=== PATIENT | female | born 2000 | race Caucasian/White ===

== ENCOUNTER 2022-03-30 18:06 | Emergency (ER) | payer OTHER ==
[~2022-03-30] VITALS: Ht 157.5 cm; Wt 59.9 kg
[~2022-03-30 18:06] MED LIST: MUCINEX DM1 TAB.SR . PO; OSEL75CA PO; PEPCID20 MG PO
== END 2022-03-30 21:28 | disposition home or self-care (01) ==
LOC: ER 18:06
DX: U07.1 COVID-19 (principal); A49.3 Mycoplasma infection, unspecified site

== ENCOUNTER 2023-04-09 16:34 | Emergency (ER) | payer OTHER ==
[~2023-04-09] VITALS: Ht 162.6 cm; Wt 72.6 kg
== END 2023-04-09 20:31 | disposition home or self-care (01) ==
LOC: ER 16:34
DX: J03.90 Acute tonsillitis, unspecified (principal); B34.9 Viral infection, unspecified; R53.81 Other malaise; Z20.822 Contact with and (suspected) exposure to COVID-19